=== PATIENT | female | born 1995 | race Caucasian/White ===

== ENCOUNTER 2017-02-27 04:08 | Emergency (ER) | payer OTHER ==
[2017-02-27 04:20] VITALS: BP 119/60
[2017-02-27] MEDS ORDERED: NITROFURANTOIN MACRO 100 MG CAPSULE PO STA (04:29)
[2017-02-27] MEDS ORDERED: PHENAZOPYRIDINE 100 MG TABLET PO STA (04:29)
[2017-02-27] MEDS ORDERED: NITROFURANTOIN MACRO 100 MG CAPSULE PO ONE (04:32)
[2017-02-27] MEDS ORDERED: PHENAZOPYRIDINE 100 MG TABLET PO ONE (04:32)
--- NOTE | 2017-02-27 04:33 | ED Physician Documentation ---
PD HPI FEMALE - Stated complaint Stated Complaint: FEMALE - Chief complaint Chief Complaint: General - History obtained from History obtained from: Patient - History of Present Illness Timing - onset: How many hours ago (4) Timing - duration: Hours (4) Timing - details: Gradual onset Pain level max: 3 Pain level max: 3 Associated symptoms: Dysuria, Urinary frequency, Hematuria. No: Fever, Abdominal pain, Back pain, Pelvic pain, Vaginal pain, Vaginal bleeding, Vaginal discharge, Genital sore/lesion Contributing factors: control (OCP). No: Similar symptoms before: Diagnosis (UTI) Recently seen: Not recently seen Review of Systems Constitutional: denies: Fever, Chills GI: denies: Vomiting : denies: Discharge, Now EGA Skin: denies: Rash Musculoskeletal: denies: Neck pain, Back pain PD PAST MEDICAL HISTORY - Past Medical History Past Medical History: No - Past Surgical History Past Surgical History: Yes /[employer]: section - Present Medications Home Medications: Ambulatory Orders Medication Instructions Recorded Confirmed Bcp 02/27/15 02/27/15 Nitrofurantoin Monohyd/M-Cryst 100 mg PO BID 5 Days 02/27/17 [Macrobid 100 mg Capsule] Phenazopyridine HCl [Pyridium] 200 mg PO TID PRN #6 tablet 02/27/17 - Allergies Allergies/Adverse Reactions: Allergies Allergy/AdvReac Type Severity Reaction Status Date / Time naproxen sodium * AdvReac Intermediate Edema Verified 02/27/15 23:53 [From Michael] - Social History Does the pt smoke?: Yes Smoking Status: Current every day smoker Does the pt drink ETOH?: No Does the pt have substance abuse?: No - Immunizations Immunizations are current?: Yes - POLST Patient has POLST: No PD ED PE NORMAL - Vitals Vital signs reviewed: Yes - General General: Alert and oriented X 3, No acute distress, Well developed/nourished - HEENT HEENT: Moist mucous membranes - Neck Neck: Supple, no meningeal sign - Cardiac Cardiac: RRR - Respiratory Respiratory: No respiratory distress, Clear bilaterally - Abdomen Abdomen: Soft, Non tender, Non distended - Back Back: No CVA TTP - Derm Derm: Warm and dry, No rash - Neuro Neuro: Alert and oriented X 3 - Psych Psych: Normal mood, Normal affect Results - Vitals Vitals: Vital Signs - 24 hr 05/29/17 04:19 Temperature 36.2 C L Heart Rate 61 Respiratory 18 Rate Blood Pressure 119/60 O2 Saturation 98 Oxygen O2 Source Room air - Labs Labs: Laboratory Tests 02/27/17 04:21 Urine Color RED/BLOODY Urine Clarity CLEAR Urine pH 6.5 Ur Specific [place] 1.020 Urine Protein Urine Glucose (UA) NEGATIVE Urine Ketones NEGATIVE Urine Occult Blood Urine Nitrite Urine Bilirubin NEGATIVE Urine Urobilinogen Ur Leukocyte Esterase Urine RBC TNTC H Urine WBC 11-25 H Ur Squamous Epith Cells RARE Squamous Urine Bacteria Moderate H Ur Microscopic Review INDICATED Urine Culture Comments INDICATED Urine HCG, Qual NEGATIVE PD MEDICAL DECISION MAKING - ED course Complexity details: reviewed results, considered differential, d/w patient ED course: Patient is a 21-year-old female who presents to the emergency department with dysuria, urinary frequency and gross hematuria. Has history of UTIs in the past. No change in sexual partners. No vaginal bleeding or discharge. Declines a pelvic exam. No evidence of pyelonephritis. No fevers. Will place on antibiotics and follow-up with her doctor. Patient was informed her that antibiotics may decrease the efficacy of control and recommended to use a backup method. Patient counseled regarding signs and symptoms for which I believe and urgent re-evaluation would be necessary. Patient with good understanding of and agreement to plan and is comfortable going home at this time This document was made in part using voice recognition software. While efforts are made to proofread this document, sound alike and grammatical errors may occur. Departure - Departure Disposition: 01 Home, Self Care Clinical Impression: Urinary tract infectious disease Condition: Good Instructions: ED UTI Cystitis Female Follow-Up: Shirin Borden MD [Primary Care Provider] - Within 1 week (if not better) Prescriptions: Nitrofurantoin Monohyd/M-Cryst [Macrobid 100 mg Capsule] 100 mg PO BID 5 Days Phenazopyridine HCl [Pyridium] 200 mg PO TID PRN #6 tablet PRN Reason: dysuria Comments: Take all antibiotics until gone. Return if you worsen. Discharge Date/Time: 02/27/17 04:37
[2017-02-27 04:39] LABS: PH,URINE 6.5 PH (5.0-7.5)
[2017-02-27 04:40] LABS: BILIRUBIN,URINE NEGATIVE (NEGATIVE); HCG UR QUAL NEGATIVE; UA w/ MICROSCOPIC CHARGE YES
[2017-02-27 04:41] LABS: UR CULTURE IF IND INDICATED
== END 2017-02-27 04:37 | disposition home or self-care (01) ==
LOC: ED 04:08
DX: N39.0 Urinary tract infection, site not specified (principal); F17.200 Nicotine dependence, unspecified, uncomplicated; Z87.440 Personal history of urinary (tract) infections
CPT/HCPCS: 81001; 81025; 87077; 87086; 87181; 99283; A9270; 81003

== ENCOUNTER 2017-11-01 04:21 | Emergency (ER) | payer OTHER ==
[2017-11-01] MEDS ORDERED: PHENAZOPYRIDINE 100 MG TABLET PO STA (04:34)
[2017-11-01] MEDS ORDERED: SULFAMETH/TRIMETH DS 800/160 MG TABLET PO STA (04:34)
[2017-11-01] MEDS ORDERED: ACETAMINOPHEN 500 MG TABLET PO STA (04:34)
[2017-11-01 04:37] VITALS: BP 124/64
--- NOTE | 2017-11-01 04:40 | ED Physician Documentation ---
PD HPI FEMALE - Stated complaint Stated Complaint: BLOOD IN URINE - History obtained from History obtained from: Patient - History of Present Illness Timing - onset: How many hours ago (4) Timing - details: Abrupt onset, Gradual onset Associated symptoms: Dysuria, Urinary frequency, Hematuria Similar symptoms before: Work up / diagnostics, Treatment Recently seen: Not recently seen - Additional information Additional information: Patient is a 22 year old female with no significant past medical history aside from frequent urinary tract infections who is presenting to the emergency department for dysuria, hematuria and increased urinary frequency. the symptoms woke the patient up from sleep about 4 hours ago and she could not wait until later to see her doctor. Review of Systems Constitutional: denies: Fever, Chills Eyes: reports: Reviewed and negative Ears: reports: Reviewed and negative Nose: reports: Reviewed and negative Throat: reports: Reviewed and negative Cardiac: reports: Reviewed and negative Respiratory: reports: Reviewed and negative GI: reports: Reviewed and negative : reports: Dysuria, Frequency, Hematuria Musculoskeletal: reports: Back pain Neurologic: reports: Reviewed and negative Psychiatric: reports: Reviewed and negative Endocrine: reports: Reviewed and negative Immunocompromised: denies: Immunocompromised PD PAST MEDICAL HISTORY - Past Surgical History Past Surgical History: Yes /[employer]: section - Present Medications Home Medications: Ambulatory Orders Medication Instructions Recorded Confirmed Bcp 02/27/15 02/27/15 Nitrofurantoin Monohyd/M-Cryst 100 mg PO BID 5 Days capsule 02/27/17 [Macrobid 100 mg Capsule] Phenazopyridine HCl [Pyridium] 200 mg PO TID PRN #6 tablet 02/27/17 Phenazopyridine HCl [Pyridium] 200 mg PO TID PRN #6 tablet 11/01/17 Sulfamethox/Trimeth 800/160 1 each PO BID #14 tablet 11/01/17 [Bactrim Ds 800/160] - Allergies Allergies/Adverse Reactions: Allergies Allergy/AdvReac Type Severity Reaction Status Date / Time naproxen sodium * AdvReac Intermediate Edema Verified 11/01/17 04:37 [From Michael] - Social History Does the pt smoke?: Yes Smoking Status: Current every day smoker Does the pt drink ETOH?: No Does the pt have substance abuse?: No - Immunizations Immunizations are current?: Yes - POLST Patient has POLST: No PD ED PE NORMAL - Vitals Vital signs reviewed: Yes - General General: Alert and oriented X 3, No acute distress - HEENT HEENT: Atraumatic, PERRL - Neck Neck: Supple, no meningeal sign - Cardiac Cardiac: RRR, No murmur - Respiratory Respiratory: No respiratory distress - Abdomen Abdomen: Soft, Non tender, Non distended - Back Back: No CVA TTP - Derm Derm: Normal color, No rash - Extremities Extremities: No deformity - Neuro Neuro: Alert and oriented X 3, No motor deficit, No sensory deficit, Normal speech - Psych Psych: Normal mood Results - Vitals Vitals: Vital Signs - 24 hr 11/01/17 04:25 Temperature 36.9 C Heart Rate 64 Respiratory 16 Rate Blood Pressure 124/64 O2 Saturation 99 Oxygen O2 Source Room air - Labs Labs: Laboratory Tests 11/01/17 04:28 Urine Color RED/BLOODY Urine Clarity BLOODY Urine pH 6.0 Ur Specific [place] 1.020 Urine Protein 100 H Urine Glucose (UA) NEGATIVE Urine Ketones NEGATIVE Urine Occult Blood LARGE H Urine Nitrite NEGATIVE Urine Bilirubin NEGATIVE Urine Urobilinogen 0.2 (NORMAL) Ur Leukocyte Esterase SMALL H Urine RBC TNTC H Urine WBC 4-5 Ur Squamous Epith Cells NONE SEEN Urine Bacteria None Seen Ur Microscopic Review INDICATED Urine Culture Comments INDICATED Urine HCG, Qual NEGATIVE PD MEDICAL DECISION MAKING - ED course Complexity details: reviewed old records, reviewed results, re-evaluated patient , considered differential, d/w patient ED course: Patient was seen and examined at bedside. Urine was collected. patient's previous cultures were reviewed and patient's urine was resistant to 1st generation cephalosporins. Patient was treated with bactrim and pyridium. Patient was able to tolerate PO without difficulty and was stable for discharge with outpatient follow up. Departure - Departure Disposition: 01 Home, Self Care Clinical Impression: Acute cystitis with hematuria Condition: Good Instructions: ED UTI Cystitis Female Follow-Up: Shirin Borden MD [Primary Care Provider] - Within 3 Days Prescriptions: Phenazopyridine HCl [Pyridium] 200 mg PO TID PRN #6 tablet PRN Reason: dysuria Sulfamethox/Trimeth 800/160 [Bactrim Ds 800/160] 1 each PO BID #14 tablet Comments: Your symptoms today are being caused by a urinary tract infection. You had your first dose of antibiotics today and will need to be on them for the next week. You can take tylenol and pyridium as needed for pain. it is important that you stay well hydrated. You should follow up with your doctor if your symptoms persist. you may return to the emergency department at any time for new, worsening or uncontrollable symptoms. Forms: Activity restrictions
[2017-11-01 05:01] LABS: BILIRUBIN,URINE NEGATIVE (NEGATIVE); GLUCOSE, URINE (UA) NEGATIVE (NEGATIVE); KETONES,URINE (UA) NEGATIVE (NEGATIVE); LEUKOCYTE ESTERASE, URINE SMALL (NEGATIVE); NITRITE,URINE NEGATIVE (NEGATIVE); OCCULT BLOOD,URINE LARGE (NEGATIVE); PROTEIN,URINE 100 mg/dL (NEGATIVE); UROBILINOGEN,URINE 0.2 (NORMAL) E.U./dL (NORMAL)
[2017-11-01 05:04] LABS: CLARITY,URINE BLOODY (CLEAR); HCG UR QUAL NEGATIVE
[2017-11-01 05:05] LABS: BACTERIA,URINE None Seen /HPF (None Seen); RBC,URINE TNTC /HPF (0-5); SQUAMOUS EPITHELIAL CELL,UR NONE SEEN (<= Few)
== END 2017-11-01 05:14 | disposition home or self-care (01) ==
LOC: ED 04:21
DX: N30.01 Acute cystitis with hematuria (principal); F17.200 Nicotine dependence, unspecified, uncomplicated
CPT/HCPCS: 81001; 81025; 87086; 87181; 99283; A9270; 81003

== ENCOUNTER 2020-02-12 09:31 | Outpatient (CLI) | payer OTHER ==
--- NOTE | 2020-02-13 13:32 | Ultrasound Report ---
Reason: TWIN , UNSP NUM PLCNTA AMNIO SACS, UNSP Procedure Date: 02/12/2020 Accession Number: [id number] / [id number] Procedure: US - OB F/U or Repeat CPT Code: Final Report FULL RESULT: EXAM: FOLLOW-UP OBSTETRICAL ULTRASOUND - TWINS EXAM DATE: 02/12/2020 10:37 AM. CLINICAL HISTORY: TWIN , UNSP NUM PLCNTA AMNIO SACS, UNSP. COMPARISON: Report from [facility] ER 12/24/2019. TECHNIQUE: Real-time sonographic evaluation of the fetus performed by the skoog operator. Multiple community health representative static images were saved for review. DATING: Established EGA 31 weeks 5 days with ISAIAH 04/10/2020 based on provider stated. EGA 34 weeks 2 days with ISAIAH 03/23/2020 based on current ultrasound. GENERAL EVALUATION Dichorionic/diamniotic twin . TWIN A: Maternal left Position: Cephalic Cardiac activity: 137 bpm. movement: Visualized. Presentation: Cephalic. Placenta: Anterior position. Amniotic fluid: 16.1 cm MVP 5.1 cm. BIOMETRY Bi-Parietal Diameter (BPD): 8.76 cm, 35 weeks 3 days Head Circumference (HC): 31.63 cm, 35 weeks 4 days Abdominal Circumference (AC): 30.23 cm, 34 weeks 1 day Femur Length (FL): 6.14 cm, 31 weeks 6 days Composite gestational age 34 weeks 2 days with ISAIAH 03/23/2020. Estimated Weight: 2276 g, 94.4 percentile for 31 weeks 5 days. TWIN B: Maternal right Position: Cephalic. Cardiac activity: 153 bpm. movement: Visualized. Presentation: Cephalic. Placenta: Posterior position. Amniotic fluid: 17.9 MVP 6.15 cm. BIOMETRY Bi-Parietal Diameter (BPD): 8.54 cm, 34 weeks 3 days Head Circumference (HC): 30.96 cm, 34 weeks 4 days Abdominal Circumference (AC): 30.07 cm, 34 weeks 0 days Femur Length (FL): 6.21 cm, 32 weeks 1 day Composite gestational age 33 weeks 6 days with ISAIAH 03/26/2020. Estimated Weight: 2234 g, 92.1 percentile for 31 weeks 5 days. IMPRESSION: 1. Dichorionic/diamniotic twin intrauterine with gestational age 31 weeks 5 days based on provider stated. 2. Twin A: - Estimated weight is within expected limits for assigned dating. Cephalic with anterior placenta 3. Twin B: - Estimated weight is within expected limits for assigned dating. - Cephalic with posterior placenta . RADIA
== END 2020-02-12 09:32 | disposition home or self-care (01) ==
LOC: DI 09:31
PROVIDERS: ATTEND Obstetrics & Gynecology
DX: O30.043 Twin pregnancy, dichorionic/diamniotic, third trimester (principal); Z3A.31 31 weeks gestation of pregnancy
CPT/HCPCS: 76816

== ENCOUNTER 2020-03-03 14:35 | Outpatient (CLI) | payer OTHER ==
[2020-03-03 14:54] VITALS: BP 116/64
--- NOTE | 2020-03-04 09:26 | PROCEDURE REPORT ---
- HPI Diagnosis/Indication for NST: Multiple gestation (TWIN AT 34 WEEKS) Current EDU 04/10/20 Gestation 34 Weeks and 4 Days 2 Para 1 Vital Signs Temperature 36.4 C L 03/03/20 14:45 Heart Rate 90 03/03/20 14:45 Blood Pressure 116/64 03/03/20 14:45 Temperature 36.4 C L 03/03/20 14:45 Heart Rate 90 03/03/20 14:45 Respiratory Rate Blood Pressure 116/64 03/03/20 14:45 O2 Saturation - NST Procedure NST Procedure Start Date 03/03/20 Start Time 14:45 Stop Time 15:15 Vibroacoustic Stimulation Used No Patient States Movement Yes - Results and Plan Findings/Impression: Both reactive Plan: continue twice weekly NST
== END 2020-03-03 15:15 | disposition home or self-care (01) ==
LOC: WFO 14:35 → FBP 14:36 → WFO 15:15
PROVIDERS: ATTEND Obstetrics & Gynecology
DX: O30.003 Twin pregnancy, unspecified number of placenta and unspecified number of amniotic sacs, third trimester (principal); Z3A.34 34 weeks gestation of pregnancy
CPT/HCPCS: 59025

== ENCOUNTER 2020-03-10 14:45 | Outpatient (CLI) | payer OTHER ==
[2020-03-10 15:07] VITALS: BP 128/78
--- NOTE | 2020-03-12 17:12 | PROCEDURE REPORT ---
- HPI Diagnosis/Indication for NST: Multiple gestation Current EDU 04/07/20 Gestation 36 Weeks and 0 Days 2 Para 1 Vital Signs Temperature 37.2 C 03/10/20 15:04 Heart Rate 95 03/10/20 15:04 Respiratory Rate 18 03/10/20 15:04 Blood Pressure 128/78 03/10/20 15:04 O2 Saturation 99 03/10/20 15:04 Temperature 37.2 C 03/10/20 15:04 Heart Rate 95 03/10/20 15:04 Respiratory Rate 18 03/10/20 15:04 Blood Pressure 128/78 03/10/20 15:04 O2 Saturation 99 03/10/20 15:04 - NST Procedure NST Procedure Start Date 03/10/20 Start Time 14:51 Stop Time 15:22 Vibroacoustic Stimulation Used No Patient States Movement Yes - Results and Plan Findings/Impression: reactive NST Plan: continue antinatla testing
== END 2020-03-10 15:25 | disposition home or self-care (01) ==
LOC: WFO 14:45 → FBP 14:47 → WFO 15:25
PROVIDERS: ATTEND Obstetrics & Gynecology
DX: O30.003 Twin pregnancy, unspecified number of placenta and unspecified number of amniotic sacs, third trimester (principal); Z3A.36 36 weeks gestation of pregnancy
CPT/HCPCS: 59025

== ENCOUNTER 2020-03-12 15:26 | Outpatient (CLI) | payer OTHER ==
[2020-03-13 21:17] LABS: TRICHOMONAS VAGINALIS DNA NEGATIVE (NEGATIVE)
== END 2020-03-12 23:59 | disposition home or self-care (01) ==
LOC: LAB.R 15:26
PROVIDERS: ATTEND Obstetrics & Gynecology
DX: Z36.85 Encounter for antenatal screening for Streptococcus B (principal)
CPT/HCPCS: 87491; 87591; 87661; 87797

== ENCOUNTER 2020-03-13 14:40 | Outpatient (CLI) | payer OTHER ==
[2020-03-13 14:55] VITALS: BP 107/65
--- NOTE | 2020-03-13 16:31 | PROCEDURE REPORT ---
- HPI Diagnosis/Indication for NST: Multiple gestation Current EDU 04/10/20 Gestation 36 Weeks and 0 Days 2 Para 1 Vital Signs Temperature 98.1 F 03/13/20 14:42 Heart Rate 91 03/13/20 14:42 Respiratory Rate 18 03/13/20 14:42 Blood Pressure 107/65 03/13/20 14:42 O2 Saturation 98 03/13/20 14:42 Temperature 98.1 F 03/13/20 14:42 Heart Rate 91 03/13/20 14:42 Respiratory Rate 18 03/13/20 14:42 Blood Pressure 107/65 03/13/20 14:42 O2 Saturation 98 03/13/20 14:42 - NST Procedure NST Procedure Start Date 03/13/20 Start Time 14:49 Stop Time 15:52 Vibroacoustic Stimulation Used No Patient States Movement Yes - Results and Plan Findings/Impression: 24yo at 36w0d with twin gestation. Both babies with Category 1 tracing, reactive. Normal activity noted. F/U as scheduled
== END 2020-03-13 15:55 | disposition home or self-care (01) ==
LOC: WFO 14:40 → FBP 14:41 → WFO 15:55
PROVIDERS: ATTEND Obstetrics & Gynecology
DX: O30.003 Twin pregnancy, unspecified number of placenta and unspecified number of amniotic sacs, third trimester (principal); Z3A.36 36 weeks gestation of pregnancy
CPT/HCPCS: 59025

== ENCOUNTER 2020-03-20 14:39 | Outpatient (CLI) | payer OTHER ==
[2020-03-20 14:54] VITALS: BP 126/77
--- NOTE | 2020-03-20 15:14 | PROCEDURE REPORT ---
- HPI Diagnosis/Indication for NST: Multiple gestation Current EDU 04/10/20 Gestation 37 Weeks and 0 Days 2 Para 1 Vital Signs Temperature 98.2 F 03/20/20 14:50 Heart Rate 98 03/20/20 14:50 Respiratory Rate 18 03/20/20 14:50 Blood Pressure 126/77 03/20/20 14:50 Temperature 98.2 F 03/20/20 14:50 Heart Rate 98 03/20/20 14:50 Respiratory Rate 18 03/20/20 14:50 Blood Pressure 126/77 03/20/20 14:50 O2 Saturation - NST Procedure NST Procedure Start Date 03/20/20 Start Time 14:45 Stop Time 15:05 Vibroacoustic Stimulation Used No Patient States Movement Yes - Results and Plan Findings/Impression: 24yo at 37 weeks with di-di twin gestation. Reactive NST x2 No contractions. US for RUBENS and growth to be done today. Plan: F/U as scheduled
--- NOTE | 2020-03-20 23:52 | Ultrasound Report ---
PROCEDURE: OB F/U or Repeat INDICATIONS: twin gestation at 37 weeks OUTSIDE/PRIOR DATING DATA: Last menstrual period (LMP): Not available. LMP-based estimated date of delivery (ISAIAH): Not available. First dating scan (date and location): Not available. Estimated date of delivery (ISAIAH) from first dating scan: 03/23/2020 (last ultrasound report). TECHNIQUE: Real-time scanning was performed of the fetus, with image documentation and biometric measurements. Endovaginal scanning: Not performed. COMPARISON: OB ultrasound, 02/15/2020. FINDINGS: General: A twin intrauterine gestation is present. Twin A: Presentation: Maternal left, anterior. Placenta: Placental position is anterior, without previa. Amniotic fluid index: Largest pocket 5.9 cm. heart rate: 144 beats per minute. Maternal cervical canal: Not visualized. biometrics: Biparietal diameter: 38 weeks 5 days Head circumference: 38 weeks 6 days Abdominal circumference: 38 weeks 6 days Femur length: 36 weeks 2 days Estimated gestational age from initial scan: 37 weeks 0 day. Composite gestational age from present scan: 38 weeks 0 day Estimated weight and percentile: 3442gm; 86% Measurement variability in biometric dating: +/- 10 days from 12-20 weeks gestation, +/- 2 weeks from 20-30 weeks gestation, +/- 3 weeks at 30 weeks gestation or more. Cord Doppler: Normal S/D ratio. Twin B: Presentation: Maternal right, posterior. Placenta: Placental position is anterior, without previa. Amniotic fluid index: Largest pocket 7.5 cm. heart rate: 140 beats per minute. Maternal cervical canal: Not visualized. biometrics: Biparietal diameter: 37 weeks 5 days Head circumference: 39 weeks 0 days Abdominal circumference: 37 weeks 3 days Femur length: 36 weeks 2 days Estimated gestational age from initial scan: 37 weeks 0 day. Composite gestational age from present scan: 37 weeks 1 day Estimated weight and percentile: 3182gm; 66% Measurement variability in biometric dating: +/- 10 days from 12-20 weeks gestation, +/- 2 weeks from 20-30 weeks gestation, +/- 3 weeks at 30 weeks gestation or more. Cord Doppler: Normal S/D ratio. IMPRESSION: 1. Twwin with appropriate interval growth. 2. The examination is limited due to advanced gestational age. 3. Twin A is to the maternal left and more anterior to twin B. Reviewed by: Svitlana Long MD on 03/20/2020 11:51 PM PDT Approved by: Svitlana Long MD on 03/20/2020 11:51 PM PDT Station ID: [id number]
== END 2020-03-20 18:00 | disposition home or self-care (01) ==
LOC: WFO 14:39 → FBP 14:41 → WFO 18:00
PROVIDERS: ATTEND Obstetrics & Gynecology
DX: O30.043 Twin pregnancy, dichorionic/diamniotic, third trimester (principal); Z3A.37 37 weeks gestation of pregnancy
CPT/HCPCS: 59025; 76816

== ENCOUNTER 2020-03-22 06:44 | Inpatient (IN) | payer OTHER ==
[2020-03-22] MEDS ORDERED: SODIUM CHLORIDE FLUSH 0.9% 10 ML SYRINGE IVP PRN ×2 (07:18→10:41)
[2020-03-22] MEDS ORDERED: OXYTOCIN/SODIUM CHLORIDE 500 ML IV PRN (07:18)
[2020-03-22] MEDS ORDERED: fentaNYL 100 MCG/2 ML VIAL IVP PRN (07:18)
[2020-03-22] MEDS ORDERED: ONDANSETRON 4 MG/2 ML VIAL IVP PRN ×2 (07:18→09:56)
[2020-03-22] MEDS ORDERED: AZITHROMYCIN INJ 500 MG in SODIUM CHLORIDE 0.9% 250 ML IV STA (07:23)
[2020-03-22] MEDS ORDERED: ceFAZolin 2 GM in SODIUM CHLORIDE 0.9% 100ML 100 ML IV ONE (07:23)
--- NOTE | 2020-03-22 07:25 | HISTORY & PHYSICAL EXAMINATION ---
Admit History - Visit Reason Visit Reason: Membranes rupture (24yo at 37w2d by LMP c/w first trimester scan GBS neg presents with c/o gush of bloody fluid at 0615 today. Few contractions.) - : 2 Parity: 1 Premature: 0 Ectopic: 0 : 0 Care: positive: [facility] Risk/History: positive: Other ( macrosomia) Complications This : positive: Multiple gestation Smoking Status: Never smoker - Mother's Labs Mother's Blood Type: positive: A Mother's RH: positive: Positive GBS: positive: Group B Step Negative Rubella Status: positive: Immune (HIV/HepB/RPR NR GC/chlam neg Glucola 118 HepC neg) Meds/Allgy - Home Medications Home Medications: Ambulatory Orders Medication Instructions Recorded Confirmed Cetirizine [ZyrTEC] 10 mg PO DAILY 03/22/20 03/22/20 Vit,Calc76/Iron/Folic 1 each PO DAILY 03/22/20 03/22/20 [Pnv 29-1 Tablet] - Allergies Allergies/Adverse Reactions: Allergies Allergy/AdvReac Type Severity Reaction Status Date / Time naproxen sodium * AdvReac Intermediate Edema Verified 11/01/17 04:37 [From Aleve] Review of Systems - All Other Systems All Other Systems: reports: Other (neg except as noted) Physical - Abdominal Exam Contraction Frequency (min/apart): Rare Contraction Intensity: positive: Mild to moderate Uterine Resting Tone: positive: Soft - Monitoring Strip Review: positive: Category I - Presentation Presentation: positive: Vertex (Vertex/vertex by scan; lowlying anterior placenta) - Vaginal Exam Membranes: positive: Membranes ruptured (Gross rupture of blood y fluid) Dilation (in cm): 3 Effacement (%): 70 Station: positive: -2 Cervical Position: positive: Posterior, Midposition - Speculum Exam Speculum Exam Performed: positive: Yes Findings: positive: Gross leak Plan for Labor - Plan For Labor Plan for Labor: 24yo at 37w2d by LMP c/w first trimester scan GBS neg with PROM. Planning rpt Low lying anterior placenta Plan ABD/Vag prep Ancef/azithro Uterotonics Blood on hold Consent including hyst Labs now>CBC, T&C NPO Team called Exam - Exam Vital Signs: 124/77, 18, 37.1, 87 General: Alert, Oriented x3, Cooperative Lungs: Clear to auscultation, Normal air movement Cardiovascular: Regular rate, No murmurs (3/6 systolic murmur) Abdomen: Soft, No tenderness (gravid) Skin: No rashes Psych/Mental Status: Mental status NL
[2020-03-22] MEDS ORDERED: miSOPROStoL 200 MCG TABLET PR SCH (07:50)
[2020-03-22] MEDS ORDERED: CARBOPROST TROMETHAMINE 250 MCG/ML AMP IM ONE (07:52)
--- NOTE | 2020-03-22 07:54 | PROVIDER PROGRESS NOTE ---
Subjective - Subjective Subjective: High PPH risk, risk of accreta with low lying anterior placenta. Discussed possibility of hyst, transfusion and associated risks with patient. Consent obtained Objective - Vital Signs/Intake & Output Vital Signs: Vital Signs x48h Temp Pulse Resp BP 03/22/20 07:32 98.8 F 87 18 124/77
[2020-03-22] MEDS ORDERED: LACTATED RINGERS 1,000 ML IV SCH ×4 (08:00→13:00)
[2020-03-22] MEDS ORDERED: TRANEXAMIC ACID 1,000 MG in SODIUM CHLORIDE 0.9% 100ML 100 ML IV ONE (08:00)
[2020-03-22 08:12] LABS: BASOPHILS % (AUTO) 0.2 %; EOSINOPHILS # (AUTO) 0.1 10^3/uL (0.0-0.7); EOSINOPHILS % (AUTO) 0.5 %; HGB - HEMOGLOBIN 13.3 g/dL (12.0-16.0); LYMPHOCYTES # (AUTO) 1.9 10^3/uL (1.5-3.5); LYMPHOCYTES % (AUTO) 19.5 %; MEAN CORPUSCULAR HGB CONC 33.7 g/dL (32.0-36.0); MEAN PLATELET VOLUME 12.8 fL (7.9-10.8); MONOCYTES # (AUTO) 1.2 10^3/uL (0.0-1.0); MONOCYTES % (AUTO) 11.8 %; NEUTROPHILS # (AUTO) 6.5 10^3/uL (1.5-6.6); NEUTROPHILS % (AUTO) 67.4 %; PLT - PLATELET COUNT 182 10^3/uL (130-450); RED BLOOD COUNT 4.44 10^6/uL (4.20-5.40); RED CELL DISTRIBUTION WIDTH 15.1 % (12.0-15.0); WHITE BLOOD COUNT 9.7 x10^3/uL (4.8-10.8)
[2020-03-22] MEDS ORDERED: METHYLERGONOVINE 0.2 MG/ML VIAL ONE (08:37)
[2020-03-22] MEDS ORDERED: ePHEDrine 50 MG/ML VIAL IVP ONE (08:40)
[2020-03-22] MEDS ORDERED: MORPHINE PF 5 MG/10 ML AMP EP ONE (08:40)
[2020-03-22] MEDS ORDERED: KETOROLAC 30 MG/ML VIAL IVP ONE (08:40)
[2020-03-22] MEDS ORDERED: ONDANSETRON 4 MG/2 ML VIAL IVP ONE (08:40)
[2020-03-22] MEDS ORDERED: AZITHROMYCIN INJ 500 MG in SODIUM CHLORIDE 0.9% 250 ML IV ONE (09:00)
[2020-03-22] MEDS ORDERED: SODIUM CHLORIDE FLUSH 0.9% 10 ML SYRINGE IVP SCH (09:00)
[2020-03-22] MEDS ORDERED: LACTATED RINGERS 1,000 ML IV ONE ×2 (09:15→10:07)
--- NOTE | 2020-03-22 09:52 | ANESTHESIA ---
Pre-Anesthesia VS, & Labs - Diagnosis twin gestation with ruptured membranes - Procedure section Vital Signs: Temp Pulse Resp BP Pulse Ox 37.1 C 87 18 124/77 03/22/20 07:32 03/22/20 07:32 03/22/20 07:32 03/22/20 07:32 Height 5 ft 4 in Weight (kg) 109.316 kg Body Mass Index 28.3 - NPO >8 hours - Is Patient ?: Yes - Lab Results Current Lab Results: Laboratory Tests 03/22/20 08:12: Blood Type Recheck A POSITIVE 03/22/20 08:00: Blood Type A POSITIVE, Antibody Screen NEGATIVE, Crossmatch IS Only See Detail 03/22/20 08:00: WBC 9.7, RBC 4.44, Hgb 13.3, Hct 39.5, MCV 89.0, MCH 30.0, MCHC 33.7, RDW 15.1 H, Plt Count 182, MPV 12.8 H, Neut # (Auto) 6.5, Lymph # (Auto) 1.9, [place] # (Auto) 1.2 H, Eos # (Auto) 0.1, Baso # (Auto) 0.0, Absolute Nucleated RBC 0.00, Nucleated RBC % 0.0 Fish Bones: 03/22/20 08:00 Home Medications and Allergies Home Medications: Ambulatory Orders Cetirizine [ZyrTEC] 10 mg PO DAILY 03/22/20 Vit,Calc76/Iron/Folic [Pnv 29-1 Tablet] 1 each PO DAILY 03/22/20 Active Medications Fentanyl (Fentanyl) 50 mcg IVP Q1H PRN PRN Reason: PAIN Lactated Ringer's (Lr) 1,000 mls @ 999 mls/hr IV .Q1H1M EDWIN Last Admin: 03/22/20 08:05 Dose: 999 mls/hr Documented by: Oxytocin/Sodium Chloride (Pitocin/Sodium Chloride) 500 mls @ 999 mls/hr IV PRN PRN; Protocol PRN Reason: POST- HEMORR PREVENTION Azithromycin 500 mg/ Sodium (Chloride) 250 mls @ 250 mls/hr IV ONCE ONE Stop: 03/22/20 09:59 Last Admin: 03/22/20 08:12 Dose: 250 mls/hr Documented by: Ondansetron HCl (Zofran Inj) 4 mg IVP Q4H PRN PRN Reason: Nausea / Vomiting Sodium Chloride (Normal Saline Flush 0.9%) 10 ml IVP PRN PRN PRN Reason: NEEDED PER PROVIDER ORDERS Sodium Chloride (Normal Saline Flush 0.9%) 10 ml IVP 0100,0900,1700 EDWIN Cetirizine [ZyrTEC] 10 mg PO DAILY 03/22/20 Vit,Calc76/Iron/Folic [Pnv 29-1 Tablet] 1 each PO DAILY 03/22/20 Allergies/Adverse Reactions: Allergies Allergy/AdvReac Type Severity Reaction Status Date / Time naproxen sodium * AdvReac Intermediate Edema Verified 11/01/17 04:37 [From Michael] Anes History & Medical History - Anesthetic History Anesthesia Complications: reports: No previous complications - Medical History Smoking Status: Never smoker - Surgical History Gynecologic: section - Obstetrical History : 2 Parity: 1 Events: positive: Other ( macrosomia) Complications: positive: Multiple gestation Exam General: Alert Dental: WNL Mouth Opening: Greater than 4 Fingerbreadths Neck Mobility: Normal Mallampati classification: I Thyromental Distance: greater than 6 cm Respiratory: Lungs clear Cardiovascular: Regular rate Plan Anesthesia Type: Spinal Consent for Procedure(s) Verified and Reviewed: Yes Code Status: Attempt Resuscitation ASA classification: 2-Mild systemic disease Is this case an emergency?: Yes
[2020-03-22] MEDS ORDERED: BUPIVACAINE 0.25% PF 30 ML VIAL ONE (09:53)
[2020-03-22] MEDS ORDERED: METOCLOPRAMIDE 10 MG/2 ML VIAL IVP PRN (09:56)
[2020-03-22] MEDS ORDERED: diphenhydrAMINE INJ 50 MG/ML VIAL IVP PRN (09:56)
[2020-03-22] MEDS ORDERED: LACTATED RINGERS 500 ML IV ONE (09:56)
[2020-03-22] MEDS ORDERED: NALOXONE 0.4 MG/ML VIAL IVP PRN (09:56)
[2020-03-22] MEDS ORDERED: ePHEDrine 50 MG/ML VIAL IVP PRN (09:56)
[2020-03-22] MEDS ORDERED: NALBUPHINE 10 MG/ML AMP IVP PRN (09:56)
[2020-03-22] MEDS ORDERED: BUPIVACAINE 0.25% PF 30 ML VIAL SUBQ ONE (10:02)
[2020-03-22] MEDS ORDERED: OXYTOCIN 10 UNIT/ML VIAL IM SCH (10:47)
[2020-03-22] MEDS ORDERED: METHYLERGONOVINE 0.2 MG/ML VIAL IM PRN (10:47)
--- NOTE | 2020-03-22 10:55 | OPERATIVE REPORT ---
Operative Report - General Admit Date: 03/22/20 Procedure Date: 03/22/20 Planned Procedure: Repeat LTC/S Pre-Op Diagnosis: 37.2 weeks Twins SROM Vertex/tertex Procedure Performed: Repeat LTC/S Post Op Diagnosis: 37.2 weeks Twins SROM Vertex/tertex - Procedure Note Primary Surgeon: Felton Aquino MD Secondary Surgeon: Shira Peres MD Anesthesia Provider: Kimberly Morgan CRNA Anesthesia Technique: Spinal Pathology: Placenta IV Fluids (mL): 1,000 Estimated Blood Loss (mL): 800 Urine Output (mL): 1,500 Indications: SROM Findings: Live Male/female. Vertex/Vertex. 06/10,06/10. 8lb 13oz/7lb 4oz
--- NOTE | 2020-03-22 12:30 | PROVIDER PROGRESS NOTE ---
Subjective - Prog Note Date Prog Note Date: 03/22/20 Prog Note Time: 12:27 - Subjective Subjective: Post op check Pain well controlled. No complaints VSS afeb. BP's now 120's/70's (was higher while shaking) UO 60cc last hour, 150cc in PACU Abd soft, non-tender. Fundus firm below umbilicus. Dressing D&I SCD's working. A/P Stable. BP's normal. Continue to follow. UO decreased signif over the past hour. Received only 1500cc intraop w EBL 800cc. Will give LR at 500cc/hr x 4 hours, then 200/hr. Continue pitocin at 75cc/hr Continue to monitor. Objective - Vital Signs/Intake & Output Vital Signs: Vital Signs x48h Temp Pulse Resp BP Pulse Ox 03/22/20 11:30 72 16 150/85 H 100 03/22/20 11:20 79 14 141/78 H 100 03/22/20 11:15 99.1 F 68 12 141/87 H 99 03/22/20 11:10 71 17 139/81 H 100 03/22/20 10:50 98.8 F 70 15 140/80 H 100 03/22/20 10:45 67 12 126/55 L 100 03/22/20 10:39 97.9 F 75 19 125/76 100 03/22/20 10:35 79 18 100 03/22/20 10:30 66 14 138/54 H 100 03/22/20 10:24 98.2 F 75 16 129/67 100 03/22/20 07:32 98.8 F 87 18 124/77 - Lab Results Fish Bones: 03/22/20 08:00 Other Labs: Lab Results x24hrs 03/22/20 03/22/20 03/22/20 Range/Units 08:12 08:00 08:00 WBC 9.7 (4.8-10.8) x10^3/uL RBC 4.44 (4.20-5.40) 10^6/uL Hgb 13.3 (12.0-16.0) g/dL Hct 39.5 (37.0-47.0) % MCV 89.0 (81.0-99.0) fL MCH 30.0 (27.0-31.0) pg MCHC 33.7 (32.0-36.0) g/dL RDW 15.1 H (12.0-15.0) % Plt Count 182 (130-450) 10^3/uL MPV 12.8 H (7.9-10.8) fL Neut # (Auto) 6.5 (1.5-6.6) 10^3/uL Lymph # (Auto) 1.9 (1.5-3.5) 10^3/uL [place] # (Auto) 1.2 H (0.0-1.0) 10^3/uL Eos # (Auto) 0.1 (0.0-0.7) 10^3/uL Baso # (Auto) 0.0 (0.0-0.1) 10^3/uL Absolute Nucleated RBC 0.00 x10^3/uL Nucleated RBC % 0.0 /100WBC Blood Type A POSITIVE Blood Type Recheck A POSITIVE Antibody Screen NEGATIVE Crossmatch IS Only See Detail
[2020-03-22] MEDS: oxyCODONE 5 MG TABLET PO PRN ×2 (13:46→18:32)
[2020-03-22] MEDS: LORATADINE 10 MG TABLET PO SCH (13:51)
[2020-03-22] MEDS: ACETAMINOPHEN 500 MG TABLET PO SCH ×2 (13:51→22:05)
[2020-03-22] MEDS: SIMETHICONE CHEW 80 MG TABLET PO SCH (13:51)
[2020-03-22] MEDS: LACTATED RINGERS 1,000 ML IV SCH ×2 (14:05→14:06)
--- NOTE | 2020-03-22 15:15 | OPERATIVE REPORT ---
DATE OF SERVICE: 03/22/2020 Physician: Felton Aquino MD PREOPERATIVE DIAGNOSES 1. 37.2 weeks. 2. Twin gestation. 3. Spontaneous rupture of membranes. POSTOPERATIVE DIAGNOSES 1. 37.2 weeks. 2. Twin gestation. 3. Spontaneous rupture of membranes. PROCEDURE PERFORMED: Repeat low transverse section. SURGEON: Felton Aquino MD. HYDROLOGICAL TECHNICAL OFFICER: Chichi Peres MD. ANESTHESIA: FRANKIE Alexander. ANESTHETIC: Spinal. ESTIMATED BLOOD LOSS: 800 mL. IV FLUIDS: 1000 mL. URINE OUTPUT: 150 mL FINDINGS: Live twin infants. Twin A: Apgars 9 and 9, male, weight 8 pounds 13 ounces. Twin B: Apgars 9 and 9, weight 7 pounds 4 ounces female. Both infants were vertex, vertex. Clear amniotic fluid was found. DESCRIPTION OF PROCEDURE: Following adequate spinal anesthesia, the patient was placed in the supine position with a roll under her right hip. Following prep of the vagina, the Saavedra catheter was placed under sterile conditions, and her abdomen was prepped in the standard usual fashion. She was then draped in the usual fashion. A timeout was performed, which concerns were addressed. At this point, following checking the anesthesia, a low Pfannenstiel incision was carried down through subcutaneous tissue to the fascia. The previous Pfannenstiel incision was high; therefore, this incision site was not utilized. The fascia was incised transversely and the rectus was split along the midline. Peritoneum was entered high. Care was taken to avoid any injury to bowel or bladder. At this point, a self retractor was placed without difficulty. A bladder flap was developed using Metzenbaum scissors. A low transverse uterine incision was accomplished using a #10 blade, bandage scissors and finger spread technique. Twin A was noted to have a cord which was between the uterine wall and the head. The head of the was then delivered out of the pelvis. The remainder of the was delivered without difficulty. The cord was allowed to pulsate and then clamped, doubly and then divided. This infant was handed to the welfare director who was standing by. At this point, the membranes were ruptured for twin B. The vertex was presenting at this time. The head was then delivered through the incision. The remainder of the infant was delivered without difficulty. The nose and mouth were bulb suctioned. The cord was then clamped with an umbilical clamp and then doubly clamped to identify this umbilical cord as compared to the first infant. At this point, the infant was handed to the nursery team that was standing by. The placenta was manually and spontaneously delivered. The internal portion of the uterus was cleansed with a dry lap. The external portion of the uterus was grasped with a moist lap. At this point, the incision was closed using a running locking suture of 0 Vicryl. There was some bleeding from the left side of the incision. This was felt to probably be uterine artery. This was treated with [id number] with evidence of good blood control. The uterus was then imbricated utilizing 0 Vicryl. At this point, cord blood was obtained from both placentas. Care was taken to avoid these separately as being twin A and twin B. The uterine incision was inspected for bleeding, none was noticed. The uterus was tipped forward and then the cul-de-sac was suctioned clear of any clots. At this point, an estimated blood loss was accomplished. The cul-de-sac was irrigated. The uterus was delivered back in the abdominal cavity and the cul-de-sac gutters were irrigated bilaterally. The incision was inspected again, and there was evidence of good hemostasis. The peritoneum was closed utilizing 2-0 Vicryl, and the rectus was inspected for bleeding. Electrocautery was utilized for hemostasis. Loop PDS was used to close the fascia. The subcutaneous tissue was inspected, irrigated. No further bleeding was noted, and the subcutaneous tissue was closed utilizing 2-0 Vicryl. The incision itself was closed utilizing 4-0 Monocryl subcuticular. At this point, a wound VAC was applied with a good suck seal. The patient tolerated the procedure well and was taken to recovery in stable condition. Sponge and needle counts were correct. Dr Peres assisted during the procedure. It was necessary and valuable. TD: 03/22/2020 11:48 CELESTINE
--- NOTE | 2020-03-22 15:17 | PROVIDER PROGRESS NOTE ---
Subjective - Prog Note Date Prog Note Date: 03/22/20 Prog Note Time: 15:16 - Subjective Subjective: UO slightly improved, 75cc/hr for last 2 hours. Otherwise stable. Continue plan for increased fluids and observe Objective - Vital Signs/Intake & Output Vital Signs: Vital Signs x48h Temp Pulse Pulse Resp BP BP Pulse Ox 03/22/20 14:00 97.7 F 87 16 124/77 96 03/22/20 13:59 16 97 03/22/20 13:00 89 134/70 H 97 03/22/20 12:40 18 03/22/20 11:30 72 16 150/85 H 100 03/22/20 11:20 79 14 141/78 H 100 03/22/20 11:15 99.1 F 68 12 141/87 H 99 03/22/20 11:10 71 17 139/81 H 100 03/22/20 10:50 98.8 F 70 15 140/80 H 100 03/22/20 10:45 67 12 126/55 L 100 03/22/20 10:39 97.9 F 75 19 125/76 100 03/22/20 10:35 79 18 100 03/22/20 10:30 66 14 138/54 H 100 03/22/20 10:24 98.2 F 75 16 129/67 100 03/22/20 07:32 98.8 F 87 18 124/77 Intake & Output: Intake & Output 03/19/20 03/20/20 03/21/20 03/22/20 23:59 23:59 23:59 23:59 Intake Total 2250 Output Total 150 Balance 2100 - Lab Results Fish Bones: 03/22/20 08:00 Other Labs: Lab Results x24hrs 03/22/20 03/22/20 03/22/20 Range/Units 08:12 08:00 08:00 WBC 9.7 (4.8-10.8) x10^3/uL RBC 4.44 (4.20-5.40) 10^6/uL Hgb 13.3 (12.0-16.0) g/dL Hct 39.5 (37.0-47.0) % MCV 89.0 (81.0-99.0) fL MCH 30.0 (27.0-31.0) pg MCHC 33.7 (32.0-36.0) g/dL RDW 15.1 H (12.0-15.0) % Plt Count 182 (130-450) 10^3/uL MPV 12.8 H (7.9-10.8) fL Neut # (Auto) 6.5 (1.5-6.6) 10^3/uL Lymph # (Auto) 1.9 (1.5-3.5) 10^3/uL [place] # (Auto) 1.2 H (0.0-1.0) 10^3/uL Eos # (Auto) 0.1 (0.0-0.7) 10^3/uL Baso # (Auto) 0.0 (0.0-0.1) 10^3/uL Absolute Nucleated RBC 0.00 x10^3/uL Nucleated RBC % 0.0 /100WBC Blood Type A POSITIVE Blood Type Recheck A POSITIVE Antibody Screen NEGATIVE Crossmatch IS Only See Detail
[2020-03-22] MEDS: KETOROLAC 30 MG/ML VIAL IVP SCH ×2 (16:30→22:05)
[2020-03-22] MEDS: DOCUSATE SODIUM 100 MG CAPSULE PO SCH (22:06)
[2020-03-22] MEDS: SODIUM CHLORIDE FLUSH 0.9% 10 ML SYRINGE IVP SCH (22:07)
[2020-03-23] MEDS: KETOROLAC 30 MG/ML VIAL IVP SCH (03:48)
[2020-03-23] MEDS: SODIUM CHLORIDE FLUSH 0.9% 10 ML SYRINGE IVP SCH (03:49)
[2020-03-23] MEDS: SIMETHICONE CHEW 80 MG TABLET PO SCH ×3 (04:15→14:36)
[2020-03-23 05:54] LABS: BASOPHILS % (AUTO) 0.2 %; EOSINOPHILS # (AUTO) 0.1 10^3/uL (0.0-0.7); EOSINOPHILS % (AUTO) 0.5 %; HGB - HEMOGLOBIN 10.6 g/dL (12.0-16.0); LYMPHOCYTES # (AUTO) 1.9 10^3/uL (1.5-3.5); LYMPHOCYTES % (AUTO) 16.6 %; MEAN CORPUSCULAR HEMOGLOBIN 28.6 pg (27.0-31.0); MEAN CORPUSCULAR HGB CONC 32.2 g/dL (32.0-36.0); MEAN CORPUSCULAR VOLUME 88.9 fL (81.0-99.0); MEAN PLATELET VOLUME 12.3 fL (7.9-10.8); MONOCYTES # (AUTO) 1.4 10^3/uL (0.0-1.0); MONOCYTES % (AUTO) 12.1 %; NEUTROPHILS # (AUTO) 8.1 10^3/uL (1.5-6.6); NEUTROPHILS % (AUTO) 70.1 %; PLT - PLATELET COUNT 143 10^3/uL (130-450); RED CELL DISTRIBUTION WIDTH 15.1 % (12.0-15.0); WHITE BLOOD COUNT 11.5 x10^3/uL (4.8-10.8)
[2020-03-23] MEDS: ACETAMINOPHEN 500 MG TABLET PO SCH ×3 (06:04→20:45)
--- NOTE | 2020-03-23 06:53 | PROVIDER PROGRESS NOTE ---
Subjective - Prog Note Date Prog Note Date: 03/23/20 Prog Note Time: 06:51 - Subjective Subjective: POD 1 Feeling better today. Nausea noted last PM resolved. Harvey removed, voided x1 without difficulty. both babies. VSS afeb UO 100cc/hr overnight, recent void 500cc (2 hours after harvey removed) Abd soft, non-tender. Fundus firm below umbilicus. Wound vac in place. No erythema or induration. Extr with 1+ bipedal edema H&H 10.6/32.9 Plt 143 Calculated iron deficit for target hgb of 13.7=[id number] Counseled re contraceptive options; she would like depo provera A/P Stable. Nausea resolved, pain well controlled. Normal lochia Mild thrombocytopenia noted Anemia as expected. Will replete iron Encourage ambulation D provera for contraception Otherwise continue routine care Objective - Vital Signs/Intake & Output Vital Signs: Vital Signs x48h Temp Pulse Resp BP Pulse Ox 03/23/20 04:07 96.7 F L 66 16 119/61 96 03/22/20 23:50 98.8 F 82 16 108/60 98 Intake & Output: Intake & Output 03/20/20 03/21/20 03/22/20 03/23/20 23:59 23:59 23:59 23:59 Intake Total 4421 400 Output Total 865 1500 Balance 3556 -1100 - Lab Results Fish Bones: 03/23/20 05:30 Other Labs: Lab Results x24hrs 03/23/20 03/22/20 03/22/20 Range/Units 05:30 08:12 08:00 WBC 11.5 H (4.8-10.8) x10^3/uL RBC 3.70 L (4.20-5.40) 10^6/uL Hgb 10.6 L (12.0-16.0) g/dL Hct 32.9 L (37.0-47.0) % MCV 88.9 (81.0-99.0) fL MCH 28.6 (27.0-31.0) pg MCHC 32.2 (32.0-36.0) g/dL RDW 15.1 H (12.0-15.0) % Plt Count 143 (130-450) 10^3/uL MPV 12.3 H (7.9-10.8) fL Neut # (Auto) 8.1 H (1.5-6.6) 10^3/uL Lymph # (Auto) 1.9 (1.5-3.5) 10^3/uL [place] # (Auto) 1.4 H (0.0-1.0) 10^3/uL Eos # (Auto) 0.1 (0.0-0.7) 10^3/uL Baso # (Auto) 0.0 (0.0-0.1) 10^3/uL Absolute Nucleated RBC 0.00 x10^3/uL Nucleated RBC % 0.0 /100WBC Blood Type A POSITIVE Blood Type Recheck A POSITIVE Antibody Screen NEGATIVE Crossmatch IS Only See Detail 03/22/20 Range/Units 08:00 WBC 9.7 (4.8-10.8) x10^3/uL RBC 4.44 (4.20-5.40) 10^6/uL Hgb 13.3 (12.0-16.0) g/dL Hct 39.5 (37.0-47.0) % MCV 89.0 (81.0-99.0) fL MCH 30.0 (27.0-31.0) pg MCHC 33.7 (32.0-36.0) g/dL RDW 15.1 H (12.0-15.0) % Plt Count 182 (130-450) 10^3/uL MPV 12.8 H (7.9-10.8) fL Neut # (Auto) 6.5 (1.5-6.6) 10^3/uL Lymph # (Auto) 1.9 (1.5-3.5) 10^3/uL [place] # (Auto) 1.2 H (0.0-1.0) 10^3/uL Eos # (Auto) 0.1 (0.0-0.7) 10^3/uL Baso # (Auto) 0.0 (0.0-0.1) 10^3/uL Absolute Nucleated RBC 0.00 x10^3/uL Nucleated RBC % 0.0 /100WBC Blood Type Blood Type Recheck Antibody Screen Crossmatch IS Only
[2020-03-23] MEDS ORDERED: IRON DEXTRAN 1,000 MG in SODIUM CHLORIDE 0.9% 250 ML IV ONE (08:00)
[2020-03-23] MEDS: oxyCODONE 5 MG TABLET PO PRN ×3 (11:16→20:44)
[2020-03-23] MEDS: DOCUSATE SODIUM 100 MG CAPSULE PO SCH (11:16)
[2020-03-23] MEDS: LORATADINE 10 MG TABLET PO SCH (14:37)
[2020-03-23] MEDS: IBUPROFEN 600 MG TABLET PO SCH (20:44)
[2020-03-24] MEDS: oxyCODONE 5 MG TABLET PO PRN ×3 (02:29→11:52)
[2020-03-24] MEDS: SIMETHICONE CHEW 80 MG TABLET PO SCH ×2 (02:30→09:48)
[2020-03-24] MEDS: DOCUSATE SODIUM 100 MG CAPSULE PO SCH ×2 (02:30→02:31)
[2020-03-24] MEDS: ACETAMINOPHEN 500 MG TABLET PO SCH (04:58)
[2020-03-24] MEDS: IBUPROFEN 600 MG TABLET PO SCH ×2 (05:20→11:53)
[2020-03-24] MEDS: SODIUM CHLORIDE FLUSH 0.9% 10 ML SYRINGE IVP SCH (05:26)
[2020-03-24] MEDS: KETOROLAC 30 MG/ML VIAL IVP SCH (05:28)
--- NOTE | 2020-03-24 09:02 | PROVIDER PROGRESS NOTE ---
Subjective - General Admit Date: 03/22/20 Procedure Date: 03/22/20 Post Op Days: 2 Procedure Performed: Repeat LTC/S - Review of Systems Wound/Incisions: positive: Dressing dry and intact General: positive: No symptoms (Pain 2/10 milk not in yet. good pain control. reviewed wound vac.) All Other Systems: positive: Other (neg except as noted) Objective - Patient Data Reviewed Vital Signs: Yes Vital Signs: Vital Signs x48h Temp Pulse Resp BP BP Pulse Ox 03/24/20 08:07 36.7 C 75 20 124/68 98 03/24/20 06:47 37.1 C 76 16 117/72 98 03/24/20 02:00 36.8 C 87 18 141/77 H 97 Weight: Weight 03/22/20 03/23/20 03/24/20 23:59 23:59 23:59 Weight (kg) 109.316 kg Intake & Output: Intake and Output Totals x24h 03/22/20 03/23/20 03/24/20 23:59 23:59 23:59 Intake Total 5921 670 Output Total 865 1850 Balance 5056 -1180 - Lab Results Lab Results: 03/23/20 05:30 - Current Medications Current Medications: Current Medications Generic Name Dose Route Start Last Admin Trade Name Freq PRN Reason Stop Dose Admin Acetaminophen 1,000 mg 03/22/20 11:00 03/24/20 04:58 Tylenol PO Not Given Q8H EDWIN Docusate Sodium 100 mg 03/22/20 21:00 03/24/20 02:31 Colace 100mg Capsule PO 100 mg BID EDWIN Administration Oxytocin/Sodium Chloride 500 mls @ 999 mls/hr 03/22/20 07:18 03/22/20 20:35 Pitocin/Sodium Chloride IV Infused PRN PRN Titration POST- HEMORR PREVENTION Protocol 999 MILLIUNIT/MIN Lactated Ringer's 1,000 mls @ 200 mls/hr 03/22/20 13:00 03/22/20 21:07 Lr IV Infused .Q5H EDWIN Infusion Ibuprofen 600 mg 03/23/20 21:00 03/24/20 05:20 Motrin PO 600 mg Q6HR EDWIN Administration Loratadine 10 mg 03/22/20 12:00 03/23/20 14:37 Claritin PO 10 mg DAILY EDWIN Administration Ondansetron HCl 4 mg 03/22/20 07:18 03/22/20 13:39 Zofran Inj IVP 4 mg Q4H PRN Administration Nausea / Vomiting Oxycodone HCl 5 mg 03/22/20 11:21 03/23/20 16:43 Roxicodone PO 5 mg Q4HR PRN Administration PAIN Oxycodone HCl 10 mg 03/23/20 20:01 03/24/20 08:03 Roxicodone PO 10 mg Q4HR PRN Administration PAIN Simethicone 80 mg 03/22/20 14:00 03/24/20 02:30 Mylicon PO 80 mg TID EDWIN Administration Sodium Chloride 10 ml 03/22/20 17:00 03/24/20 05:26 Normal Saline Flush 0.9% IVP Not Given 0100,0900,1700 [facility] - Physical Exam Wound/Incisions: positive: Dressing dry and intact General Appearance: positive: No acute distress, Alert Respiratory: positive: Chest non-tender, No respiratory distress Cardiovascular: positive: Regular rate & rhythm, No murmur Abdomen: positive: Non-tender, Nml bowel sounds, Mass Back: negative: CVA tenderness (R), CVA tenderness (L) Skin: positive: Color nml, No rash, Warm, Dry Neurologic/Psychiatric: positive: Oriented x3 Impression/Plan - Problem List Problem List: POD #2 Send home Discharge medications oxycodone 5mg # 20 motrin 600 mg colace 100 mg RTC 1 week.
[2020-03-24] MEDS: LORATADINE 10 MG TABLET PO SCH (09:29)
[2020-03-24 12:39] VITALS: BP 131/80
--- NOTE | 2020-03-24 14:42 | Labor Flowsheet ---
Labor Flowsheet Datetime Report Generated by CPN: 03/24/2020 14:42 Datetime: 03/24/2020 12:31 VITAL SIGNS NBP Sys/Nilda/Mean (mmHg): 131 : 80 : 92 Pulse: 81 COMMUNICATION LaborFlag: Labor Datetime: 03/24/2020 06:15 SpO2 (%): 97 Datetime: 03/22/2020 08:35 UTERINE ACTIVITY Monitor Mode: External Frequency (min): 2 Quality: Moderate Duration (sec): 40-80 Pattern: Normal: <= 5 Contractions in 10 Minutes Resting Tone (Palpate): Relaxed ASSESSMENT A Monitor Mode: External US FHR Baseline Rate : 140 Variability: Moderate 6-25 bpm Accelerations: 15X15 Decelerations: None Category: Category I ASSESSMENT B Monitor Mode: External US FHR Baseline Rate : 140 Variability: Moderate 6-25 bpm Accelerations: None Decelerations: None Category: Category I PATIENT CARE Oxygen Method: Room Air
--- NOTE | 2020-03-25 19:16 | DISCHARGE SUMMARY ---
Physician: Felton Aquino MD DATE OF ADMISSION: 03/22/2020 DATE OF DISCHARGE: 03/24/2020 ADMITTING DIAGNOSES 1. A 24-year-old G2, P1, female 37.3 weeks. 2. Twin gestation, dichorionic/diamniotic, vertex/vertex, male/female. 3. Spontaneous rupture of membranes. 4. Previous section. 5. Suspected macrosomia. DISCHARGE DIAGNOSES 1. A 24-year-old G2, P1, female 37.3 weeks. 2. Twin gestation, dichorionic/diamniotic, vertex/vertex, male/female. 3. Spontaneous rupture of membranes. 4. Previous section. 5. Suspected macrosomia. PROCEDURE: Repeat low transverse section. PRESENTING HISTORY: Patient is a 24-year-old G2, P1 female at 37.2 weeks. She had previously been diagnosed with Di/Di male/female, vertex/vertex presentation. She was measuring a fundal height of 46 cm at ultrasound, which showed the infants to be in the 95th and 90th percentile. She had tested negative for gestational diabetes during her . Her 50 gram Glucola was 118. She was A positive. She was GBS negative. Her STI checks were all negative. HOSPITAL COURSE: Patient presented with spontaneous rupture of membranes. At the time of admission, she was 3 cm, 70% effaced, -2 with clear amniotic fluid. Because of previous section, she was scheduled for repeat section. Her labs on admission, white count was 9.7, hemoglobin was 13.3, hematocrit 39.5 and platelets were 182. Postoperative day #1, white count was 11.5, hemoglobin 10.6, hematocrit 32.9 and platelets were 143. Patient was admitted, at which time because of her previous section was taken back for repeat section. This was performed without incident. At time of delivery, she had 2 infants, which weighed 8 pounds 13 ounces male and the second a female was 7 pounds 4 ounces. The Apgars were 9 and 9 and 9 and 9. The male was presenting vertex and the female was also presenting vertex. Estimated blood loss at time of section was 800 mL. Postoperatively, patient did quite well. Her diet was advanced. She passed flatus. She was discharged to home on the second day postop, at her request. DISCHARGE MEDICATIONS 1. Oxycodone 5 mg, #20. 2. Motrin 600 mg. 3. Colace 100 mg. We discussed the issues of contraception. She is instructed to follow up in the clinic in 1 week. A wound VAC was placed after surgery and patient agreed to have this continue to run. TD: 03/25/2020 15:51 CELESTINE
== END 2020-03-24 14:05 | disposition home or self-care (01) | DRG 787 ==
LOC: WFO 06:44 → FBP 06:47 → WFO 07:17 → FBP 07:18
PROVIDERS: ADMIT Obstetrics & Gynecology; ATTEND Obstetrics & Gynecology
PROC: 10D00Z1 Extraction of Products of Conception, Low, Open Approach (ICD-10-PCS; principal; 2020-03-22 08:00)
DX: O30.043 Twin pregnancy, dichorionic/diamniotic, third trimester (principal); O44.43 Low lying placenta NOS or without hemorrhage, third trimester; O36.63X0 Maternal care for excessive fetal growth, third trimester, not applicable or unspecified; O34.211 Maternal care for low transverse scar from previous cesarean delivery; O90.81 Anemia of the puerperium; D50.9 Iron deficiency anemia, unspecified; Z37.2 Twins, both liveborn; Z3A.37 37 weeks gestation of pregnancy
CPT/HCPCS: 36415; 85025; 86850; 86900; 86901; 86920; 99214; A9270; J1750; J7120